=== PATIENT | female | born 1950 | race Two or more races ===

== ENCOUNTER → 2025-04-22 | Outpatient (CLI) | payer MEDICARE, MEDICAID, SELFPAY ==
--- NOTE | 2025-04-22 15:24 | XR_ITS ---
Examination: PA lateral chest 2 views TECHNIQUE: Upright PA and lateral chest 2 views Date and time: April 22, 2025 1534 hours INDICATIONS: Recurrent urinary tract infections one year, hematuria FINDINGS: Mild prominence of ventricle CABG No pneumonia or pulmonary edema Moderate osteopenia IMPRESSION: No active disease
== END | disposition home or self-care (01) ==
PROVIDERS: PCP Nurse Practitioner Family; Referring Provider Surgery; Visit Provider Surgery
DX: N39.0 Urinary tract infection, site not specified (principal)
CPT/HCPCS: 71046

== ENCOUNTER → 2025-06-10 | Outpatient (CLI) | payer MEDICARE, MEDICAID, SELFPAY ==
--- NOTE | 2025-06-10 09:55 | XR_ITS ---
Examination: Retroperitoneal ultrasound, complete Technique: Multiple high resolution grayscale images of the retroperitoneum obtained, including kidneys and bladder. Exam date and time:June 02, 2025, 10:00 AM INDICATIONS: Urinary tract infection beginning 3 months ago FINDINGS: Right kidney 10.2 cm cortex 1.5 cm Left kidney 9.8 cm cortex 1.3 cm Moderate renal parenchymal scar formation Contracted urinary bladder, prevoid volume 150 cc no bladder mass IMPRESSION: Bilateral renal cortical thinning Moderate bilateral renal parenchymal scar formation. No hydronephrosis
--- NOTE | 2025-06-10 10:10 | XR_ITS ---
Examination: Abdomen AP single view Technique: AP portable supine abdomen, single view Exam date and time: June 10, 2025 1017 hours INDICATIONS: Urinary tract infections flank pain months. FINDINGS: A tiny calcifications overlying both kidneys which may be renal arterial No ureteral calculi Nonobstructive bowel gas pattern IMPRESSION: Multiple tiny calcifications overlying both kidneys
== END | disposition home or self-care (01) ==
PROVIDERS: PCP Nurse Practitioner Family; Referring Provider Surgery; Visit Provider Surgery
DX: N28.89 Other specified disorders of kidney and ureter (principal)
CPT/HCPCS: 74018; 76770